=== PATIENT | male | born 1975 | race Caucasian/White ===

== ENCOUNTER 2025-01-31 12:01 | Emergency (ER) | payer BC ==
[~2025-01-31] VITALS: Ht 182.9 cm; Wt 175.9 kg
[2025-01-31 12:40] LABS: KETONE, URINE AUTO RFX NEGATIVE (NEGATIVE); LEUKOCYTE ESTERASE UR AUTO RFX NEGATIVE (NEGATIVE); NITRITE, URINE AUTO RFX NEGATIVE (NEGATIVE); RBC, URINE AUTO RFX 6 /HPF (0-3); SQUAM EPITHELIAL CELL UR AURFX 0 /HPF (0-6); WBC, URINE AUTO RFX 0 /HPF (0-3)
[2025-01-31] MEDS: NS (Normal Saline) 0.9% 1,000 ML IV ONE (12:48)
[2025-01-31] MEDS: KETOROLAC 30 MG/ML 1ML VIAL IV ONE (12:48)
[2025-01-31] MEDS: ONDANSETRON 4MG 2ML VIAL IV ONE (12:49)
[2025-01-31 13:14] LABS: BASO # 0.1 10^3/uL (0.0-0.2); BASO % 0.7 % (0.0-1.0); EOS # 0.1 10^3/uL (0.0-0.5); EOS % 0.9 % (0.0-3.0); HEMATOCRIT 48.1 % (42.0-52.0); LYMPH # 1.9 10^3/uL (1.5-5.0); LYMPH % 17.3 % (24.0-44.0); MEAN CORPUSCULAR HEMOGLOBIN 29.4 pg (27.0-33.0); MEAN CORPUSCULAR HGB CONC 33.3 g/dl (32.0-36.5); MEAN CORPUSCULAR VOLUME 88.3 fl (80.0-96.0); MONO # 0.6 10^3/uL (0.0-0.8); MONO % 5.1 % (2.0-8.0); NEUTROPHILS # 8.2 10^3/uL (1.5-8.5); NEUTROPHILS % 75.5 % (36.0-66.0); PLATELET COUNT, AUTOMATED 262 10^3/uL (150-450); RED BLOOD COUNT 5.45 10^6/uL (4.30-6.10); WHITE BLOOD COUNT 10.9 10^3/uL (4.0-10.0)
[2025-01-31 13:44] LABS: ALBUMIN 3.9 G/DL (3.2-5.2); BILIRUBIN,DIRECT 0.2 MG/DL (<0.4); BILIRUBIN,TOTAL 0.6 MG/DL (0.3-1.2); CALCIUM LEVEL 9.3 MG/DL (8.5-10.1); CREATININE FOR GFR 1.03 MG/DL (0.70-1.30); GLOMERULAR FILTRATION RATE 89.1 (>60); POTASSIUM SERUM 4.8 MMOL/L (3.5-5.1); TOTAL PROTEIN 8.1 G/DL (5.7-8.2)
[2025-01-31] MEDS: hydrOXYzine 50 MG TAB PO ONE (14:05)
[2025-01-31] MEDS: MORPHINE 4 MG/ML 1ML VIAL IV ONE (14:05)
[2025-01-31 14:26] VITALS: BP 170/90; O2SAT 99
[2025-01-31 14:30] VITALS: TEMP 97.2
[2025-01-31] MEDS ORDERED: PERC5TAB12 PO (14:35)
[2025-01-31] MEDS ORDERED: TAMS-18 PO (14:36)
== END 2025-01-31 15:09 | disposition home or self-care (01) ==
LOC: M ED 12:01
DX: N20.1 Calculus of ureter (principal); Z79.899 Other long term (current) drug therapy
CPT/HCPCS: 74176; 80048; 80076; 81001; 83690; 85025; 93041; 96361; 96374; 96375; 99284; J1885; J2405